=== PATIENT | female | born 1975 | race Caucasian/White ===

== ENCOUNTER 2021-01-16 15:22 | Emergency (ER) | payer OTHER ==
[~2021-01-16] VITALS: Ht 160 cm; Wt 70.0 kg
[2021-01-16] MEDS ORDERED: KETOROLAC 60 MG/2 ML VIAL IM STA (15:41)
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
[2021-01-16] MEDS ORDERED: ACHD5005 PO (16:02)
[2021-01-16] MEDS ORDERED: BACL10TA PO (16:02)
[2021-01-16] MEDS ORDERED: IBUP-1780 PO (16:02)
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
[2021-01-16 17:29] VITALS: BP 120/76
== END 2021-01-16 18:12 | disposition home or self-care (01) ==
LOC: ER FS 15:24
DX: S16.1XXA Strain of muscle, fascia and tendon at neck level, initial encounter (principal); S29.019A Strain of muscle and tendon of unspecified wall of thorax, initial encounter; S39.012A Strain of muscle, fascia and tendon of lower back, initial encounter; S80.01XA Contusion of right knee, initial encounter; M25.511 Pain in right shoulder; V89.2XXA Person injured in unspecified motor-vehicle accident, traffic, initial encounter
CPT/HCPCS: 70450; 71250; 72125; 73030; 73562; 74176